=== PATIENT | male | born 1955 | race Caucasian/White ===

== ENCOUNTER 2023-10-05 11:22 | Emergency (ER) | payer MEDICARE ==
[~2023-10-05] VITALS: Ht 160 cm; Wt 54.5 kg
[~2023-10-05 11:22] MED LIST: FOLI0.4T14 PO; PANT-31 PO; THIA100T80 PO
[2023-10-05 11:32] VITALS: TEMP 98.4
[2023-10-05 13:47] LABS: PH,URINE DRUG SCREEN 6.5 (5.0-8.0)
[2023-10-05 13:55] LABS: ALCOHOL, URINE DRUG SCREEN NEGATIVE (NEGATIVE); AMPHET/METH SCREEN,URINE NEGATIVE (NEGATIVE); BARBITURATE SCREEN, URINE NEGATIVE (NEGATIVE); BENZODIAZEPINES SCREEN,URINE NEGATIVE (NEGATIVE); CANNABINOID SCREEN,URINE POSITIVE (NEGATIVE); COCAINE SCREEN,URINE NEGATIVE (NEGATIVE); METHADONE SCREEN, URINE NEGATIVE (NEGATIVE); OPIATE SCREEN,URINE NEGATIVE (NEGATIVE); PHENCYCLIDINE SCREEN,URINE NEGATIVE (NEGATIVE)
[2023-10-05 14:29] VITALS: BP 158/72; PULSE 96; RESP 16
== END 2023-10-05 17:01 | disposition home or self-care (01) ==
LOC: EMS 12:09
DX: F12.90 Cannabis use, unspecified, uncomplicated (principal); T40.415A Adverse effect of fentanyl or fentanyl analogs, initial encounter; E78.00 Pure hypercholesterolemia, unspecified; I10 Essential (primary) hypertension; F17.210 Nicotine dependence, cigarettes, uncomplicated; Z98.890 Other specified postprocedural states
CPT/HCPCS: 51701; 71045; 80307; 93005; 99285

== ENCOUNTER 2024-05-21 13:20 | Emergency (ER) | payer MEDICARE ==
[~2024-05-21] VITALS: Ht 165.1 cm; Wt 70.5 kg
[2024-05-21 13:37] VITALS: TEMP 98.5
[2024-05-21 15:08] LABS: BASOPHILS % (AUTO) 1.2 % (0.0-2.0); EOSINOPHILS % (AUTO) 0.5 % (1.0-6.0); HEMATOCRIT 36.3 % (41-53); HEMOGLOBIN 11.6 g/dL (13.5-17.5); LYMPHOCYTES # (AUTO) 0.8 K/uL (1.0-4.8); LYMPHOCYTES % (AUTO) 10.8 % (22.0-44.0); MEAN CORPUSCULAR HEMOGLOBIN 25.6 pg (26.0-34.0); MEAN CORPUSCULAR VOLUME 80 fL (80-100); MONOCYTES # (AUTO) 0.6 K/uL (0.1-1.0); MONOCYTES % (AUTO) 8.3 % (2.0-9.0); NEUTROPHILS # (AUTO) 5.8 K/uL (1.8-7.7); NEUTROPHILS % (AUTO) 79.2 % (40.0-70.0); PLATELET COUNT (AUTO) 348 K/uL (150-450); RED BLOOD CELL COUNT(AUTO) 4.53 MIL/uL (4.50-5.90); RED CELL DISTRIBUTION WIDTH 16.6 % (11.5-14.5); WHITE BLOOD COUNT (AUTO) 7.3 K/uL (4.5-11.0)
[2024-05-21 15:22] LABS: ANION GAP 9 mmol/L (8-16); CALCIUM, TOTAL 8.3 mg/dL (8.8-10.5); CARBON DIOXIDE 28 mmol/L (22-29); CHLORIDE 93 mmol/L (98-107); CREATININE 1.13 mg/dL (0.60-1.30); GLOMERULAR FILTR. RATE CALC > 60 mL/min (>60); GLUCOSE,RANDOM 105 mg/dL (70-110); POTASSIUM 3.7 mmol/L (3.5-5.1); SODIUM SERUM 130 mmol/L (136-145); UREA NITROGEN, BLOOD 11 mg/dL (7-18)
[2024-05-21 15:30] LABS: ALANINE AMINOTRANSFERASE 10 U/L (12-78); ALBUMIN 2.6 g/dL (3.4-5.0); ALKALINE PHOSPHATASE 63 U/L (46-116); ASPARTATE AMINOTRANSFERASE 14 U/L (15-37); BILIRUBIN,TOTAL 0.4 mg/dL (0.1-1.0); TOTAL PROTEIN, SERUM 6.5 g/dL (6.4-8.2)
[2024-05-21 15:41] LABS: ALCOHOL, BLOOD (SERUM) < 3 mg/dL (0-10)
[2024-05-21 16:49] LABS: COVID AG,FIA SOURCE NASAL SWAB
[2024-05-21 17:06] LABS: SARS-COV2 (COVID) ANTIGEN,FIA Negative (Negative)
[2024-05-21] MEDS: HYDROCODONE/ACETAMINOPHEN 5-325 MG TABLET PO ONE (17:08)
[2024-05-21 19:48] VITALS: BP 159/83; PULSE 72; RESP 18
== END 2024-05-21 21:01 | disposition home or self-care (01) ==
LOC: EMS 13:21
DX: D64.9 Anemia, unspecified (principal); M25.551 Pain in right hip; E87.1 Hypo-osmolality and hyponatremia; R53.1 Weakness; F17.210 Nicotine dependence, cigarettes, uncomplicated; I10 Essential (primary) hypertension; Z79.899 Other long term (current) drug therapy; Z20.822 Contact with and (suspected) exposure to COVID-19; W18.39XA Other fall on same level, initial encounter; Y93.01 Activity, walking, marching and hiking; Y92.89 Other specified places as the place of occurrence of the external cause; Y99.8 Other external cause status
CPT/HCPCS: 99284; 87426; 80048; 80076; 85025; 36415; 73502; G0480